=== PATIENT | male | born 1980 | race Caucasian/White ===

== ENCOUNTER 2022-03-25 20:18 | Emergency (ER) | payer BC ==
[2022-03-25] MEDS ORDERED: Lidocaine 1% 10 ML MDV INJECT ONE (21:29)
== END 2022-03-25 22:55 | disposition home or self-care (01) ==
LOC: JD.ED 20:18
DX: S62.640B Nondisplaced fracture of proximal phalanx of right index finger, initial encounter for open fracture (principal); S63.250A Unspecified dislocation of right index finger, initial encounter; W23.1XXA Caught, crushed, jammed, or pinched between stationary objects, initial encounter; Y93.67 Activity, basketball
CPT/HCPCS: 12001; 26725; 29125; 73140-26-F6; 73140-F6; 99283-25; 99284; J3490